=== PATIENT | female | born 1995 | race Caucasian/White ===

== ENCOUNTER 2019-01-11 13:40 | Inpatient (IN) | payer BC, OTHER ==
[2019-01-11] MEDS: LACTATED RINGERS 1,000 ML IV SCH (14:00)
[2019-01-11 14:21] LABS: Basophils % (A) 0 %; Eosinophils # (A) 0.1 k/uL (0-0.7); Eosinophils % (A) 1 %; HCT 35.5 % (34.0-46.0); Lymphocytes # (A) 1.8 k/uL (1.0-4.8); Lymphocytes % (A) 10 %; MCHC 33.9 g/dL (31.0-37.0); MCV 88.5 fL (80.0-100.0); Mean Platelet Volume 7.5; Monocytes # (A) 0.5 k/uL (0-1.0); Monocytes % (A) 3 %; Neutrophils # (A) 14.8 k/uL (1.3-7.7); Neutrophils % (A) 85 %; Platelet Count 282 k/uL (150-450); RBC 4.01 m/uL (3.80-5.40); RDW 13.7 % (11.5-15.5); WBC 17.3 k/uL (3.8-10.6)
[2019-01-11 14:32] LABS: INR 0.9 (<1.2); Partial Thromboplastin Time 22.4 sec (22.0-30.0); Prothrombin Time 9.5 sec (9.0-12.0)
[2019-01-11] MEDS: BUTORPHANOL 1 MG/ML 1 ML VIAL IV PRN ×2 (14:33→14:52)
[2019-01-11] MEDS ORDERED: AMPICILLIN 2,000 MG in SODIUM CHLORIDE 0.9% 100 ML IVPB STA (14:35)
--- NOTE | 2019-01-11 14:47 | US ---
EXAMINATION TYPE: US OB >= 14 wk fetus DATE OF EXAM: 01/11/2019 COMPARISON: None CLINICAL HISTORY: bright bleeding , pain. Second trimester . TECHNIQUE: Transabdominal (TA) GESTATIONAL AGE / DATING Physician Established: (21 weeks/6 days) EDC: 05/18/19 Dates by LMP: LMP unknown Dates by First Scan: No previous available Dates by Current Scan: (21 weeks/ 5 days) EDC: 05/19/19 Beta HCG (if available): Not available at this time SURVEY IUP: Single PLACENTA: Posterior PREVIA: No Previa JEAN: 10.5 cm CERVICAL LENGTH (transabdominal: norm > 3.0cm): fluid filled cervix BIOMETRY PRESENTATION: Breech BPD: 5.2 cm 21 weeks / 6 days HC: 18.7 cm 21 weeks / 4 days AC: 16.4 cm 21 weeks / 4 days FL: 3.7 cm 21 weeks / 4 days ESTIMATED WEIGHT IN GRAMS: 431 grams ESTIMATED WEIGHT IN LBS/OZ: 0 lbs. 15 oz. WEIGHT PERCENTAGE BASED ON ESTABLISHED DATES: 23% HC/AC: 1.14 FL/AC: 23 HEART RATE: [address] Beltran present during exam. Severe funneling in cervix. Initial images show cervical thinning with protrusion of gestational sac. No premature membrane ruptu re as amniotic fluid index is calculated within normal limits. No ultrasound evidence for placenta pr evia. Current breech presentation noted. biometry measurements are concordant felt within brice l limits. IMPRESSION: Cervical thinning with protrusion of gestational sac.
[2019-01-11] MEDS ORDERED: LANOLIN CREAM 5 GM TUBE TOPICAL PRN (15:08)
[2019-01-11] MEDS ORDERED: diphenhydrAMINE 50 MG CAP PO PRN (15:08)
[2019-01-11] MEDS ORDERED: WITCH HAZEL 1 EACH MED..PAD TOPICAL PRN (15:08)
[2019-01-11] MEDS ORDERED: ACETAMINOPHEN TAB 325 MG TAB PO PRN (15:08)
[2019-01-11] MEDS ORDERED: HYDROCORTISONE 2.5% RECTAL CREAM 30 GM TUBE RECTAL PRN (15:08)
[2019-01-11] MEDS ORDERED: diphenhydrAMINE 25 MG CAP PO PRN (15:08)
[2019-01-11] MEDS ORDERED: SIMETHICONE 80 MG CHEWABLE PO PRN (15:08)
[2019-01-11] MEDS ORDERED: IBUPROFEN 600 MG TAB PO PRN (15:08)
[2019-01-11] MEDS ORDERED: BENZOCAINE/MENTHOL SPRAY 1 GM/SPRAY AEROSOL TOPICAL PRN (15:08)
[2019-01-11] MEDS ORDERED: ZOLPIDEM 5 MG TAB PO PRN (15:08)
[2019-01-11] MEDS ORDERED: OXYTOCIN 20 UNITS/1000 ML NS 1,000 ML IV SCH (15:15)
--- NOTE | 2019-01-11 16:58 | P.HPOB ---
History of Present Illness H&P Date: 01/11/19 Chief Complaint: Intrauterine 21 weeks active labor Patient is a 23-year-old at 20 weeks 6 days gestation who arrives complaining of pain and bleeding. On immediate presentation a stat ultrasound was ordered as there was no evidence of placentali on ultrasound 2 weeks ago and she was not having heavy flow of blood but the abdomen was hard and other were heart tones noted there was concern for an abruption. CBC and coags were also ordered. Blood type was B+. During the ultrasound it was noted that the bag of water was all in the vagina representing either cervical incompetence or active labor. They cannot see her identify any cervical tissue however. I did come in and examine the patient immediately at that point and was sectioned present for some of the ultrasound. Digital exam was done and neck palpate membranes but could not feel any cervix behind them. As she was only 21 weeks and previable she and I did have discussion that once baby was born that the baby would pass away. They was noted and breech presentation. She did I did discuss that if she was further long we would likely do a section as will be safer to try and deliver the baby by but, as she is so previable by at least 2-3 weeks, we would allow for a vaginal delivery as that would be safer for her and we'll allow her to try and deliver vaginally in the future as it would certainly have to be classical to deliver the baby at this point. She understands and agrees with above and will plan IV pain medication as she isn't too much pain to do a epidural. She relates that the pain began 2 nights ago and has progressively gotten worse and over the last several hours the pain has gotten the point where it is severe and she is feeling it almost every 1-2 minutes. This has been going on acutely for 3 or 4 hours but pain was approximately every 5 minutes since early last evening but she did not call or come into labor and delivery she thought she was having gas pain initially. It is unclear whether or not we would have been able to do anything to HER the course of this. It does not seem likely that this is a cervical incompetence issue, she is karly labs are pending but I suspect that this is labor and possibly from infection although she has no fever chills nausea or vomiting at this time. Will need further workup moving forward. Should she get again in the near future, she would almost certainly benefit from maternal medicine evaluation and vaginal cultures should be done post p artum to rule out any potential vaginitis or vaginal infection may have played a role in this event. On physical exam her heart is regular, lungs are clear, extremities are without pain. Abdomen is is firm with contractions but soft otherwise. Feels heart tones were noted and were noted on ultrasound, however once she was moved to the labor and delivery suite we will no longer picking up any active heart tones. She did have spontaneous rupture membranes when she was moved to the delivery room as well. Assessment intrauterine at 21 weeks active labor Plan anticipate spontaneous vaginal delivery of nonviable baby Past Medical History Past Medical History: No Reported History History of Any Multi-Drug Resistant Organisms: None Reported Past Surgical History: No Surgical Hx Reported Past Anesthesia/Blood Transfusion Reactions: No Reported Reaction Smoking Status: Current every day smoker - Past Family History Father Family Medical History: No Reported History Medications and Allergies Allergies Allergy/AdvReac Type Severity Reaction Status Date / Time No Known Allergies Allergy Verified 01/11/19 13:54 Exam Osteopathic Statement: *. No significant issues noted on an osteopathic s tructural exam other than those noted in the History and Physical/Consult. Vital Signs Temp Pulse Resp BP 01/11/19 16:00 98.5 F 82 15 118/54 01/11/19 15:59 98.6 F 80 16 112/55 01/11/19 15:44 79 16 109/57 01/11/19 15:29 93 16 126/59 01/11/19 15:14 97.7 F 87 16 118/64 01/11/19 14:31 98.5 F 85 16 121/58 Intake and Output 01/11/19 01/11/19 01/11/19 06:59 14:59 22:59 Other: Weight 57.153 kg Results Result Diagrams: 01/11/19 14:10 Abnormal Lab Results - Last 24 Hours (Table) 01/11/19 Range/Units 14:10 WBC 17.3 H (3.8-10.6) k/uL Neutrophils # 14.8 H (1.3-7.7) k/uL
--- NOTE | 2019-01-11 17:00 | P.PROBDLV ---
Vaginal Delivery Note - . Vaginal Delivery Note: Patient progressed complete and pushing with spontaneous vaginal delivery of a nonviable female over an intact perineum. Baby was delivered from rodrick breech presentation once body was delivered arms were swept aside and although there was some difficulty in delivering the head through the cervix baby with very careful gentle adjustments was able to be delivered intact. There was no signs of life at delivery of the body AB was mottled and bruised and no cardiac activity or palpation of blood flow through the umbilical cord was noted. [employer] and nursery were present at delivery but there was unfortunately nothing else that could be done. Once baby was delivered placenta disc delivered intact there were still some membranes that remained behind. She had no active bleeding and she and I discussed if she begins to have any heavy bleeding she may have to have a D&C to remove the remainder of the membranes although there does not appear to be. Many left otherwise, they may separate on the [place] and be passed without difficulty. We will plan on continuing to monitor her through the evening and make adjustments as necessary. Ultimately, she may need an ultrasound and potential D&C moving forward if the membranes did not separate and deliver on her own.
--- NOTE | 2019-01-11 17:43 | P.PN ---
Progress Note - Text Progress Note Date: 01/11/19 I did go in and speak with she and the father of the baby. All questions were answered for them. I did explain that I thought that she was likely in labor and that unfortunately no therapies would alter the outcome of today's event. I explained most likely there was some type of infection or an unknown reason for her to have had labor. She was however too early for FSN so would not have made any difference from that standpoint. I also explained what cervical incompetence was but explained and did not think that that was the reason for her going into labor and having this occur as ultrasound 2 weeks ago revealed her cervix to be 3.3 cm and without funneling. All questions have been answered for them at this time and we'll continue to monitor her through the night.
[2019-01-11 17:48] VITALS: RESP 16
[2019-01-11] MEDS: AMPICILLIN 1,000 MG in SODIUM CHLORIDE 0.9% 50 ML IVPB SCH (19:59)
[2019-01-12] MEDS: LACTATED RINGERS 1,000 ML IV SCH ×4 (00:35→00:40)
[2019-01-12] MEDS: SENNOSIDES-DOCUSATE SODIUM 1 EACH TAB PO SCH ×2 (00:36→09:38)
[2019-01-12] MEDS: AMPICILLIN 1,000 MG in SODIUM CHLORIDE 0.9% 50 ML IVPB SCH ×4 (04:12→07:33)
[2019-01-12 06:42] LABS: Basophils % (A) 0 %; Eosinophils % (A) 0 %; HGB 10.8 gm/dL (11.4-16.0); Lymphocytes # (A) 0.6 k/uL (1.0-4.8); Lymphocytes % (A) 5 %; MCH 31.1 pg (25.0-35.0); MCHC 34.8 g/dL (31.0-37.0); MCV 89.3 fL (80.0-100.0); Mean Platelet Volume 8.3; Monocytes # (A) 0.3 k/uL (0-1.0); Monocytes % (A) 3 %; Neutrophils # (A) 9.9 k/uL (1.3-7.7); Neutrophils % (A) 91 %; Platelet Count 203 k/uL (150-450); RBC 3.48 m/uL (3.80-5.40); RDW 14.9 % (11.5-15.5); WBC 10.8 k/uL (3.8-10.6)
[2019-01-12 07:40] VITALS: BP 107/58; PULSE 91; TEMP 98.9
--- NOTE | 2019-01-12 08:00 | P.DS ---
Providers Date of admission: 01/11/19 14:19 Expected date of discharge: 01/12/19 Attending physician: Nuris Rogers Primary care physician: Stated None Hospital Course: Patient is overall doing well this morning. Clearly she is still very emotionally distraught, but overall her pain is well tolerated and her lochia is reported to be light and she has no other complaints. Her vital signs are stable and she has been afebrile the entire time. White blood cell count decreased from 17-10. We'll plan discharged home later this morning. She is requesting discharge home as she has an appointment later this morning as well. On physical exam heart regular, lungs clear, extremities without pain. Abdomen is soft there is no tenderness or signs or symptoms of endometritis. We did have a discussion about the potential for heavy bleeding and need to report immediately to our office or to the emergency room especially provided factor may still be some fragments of membrane there and not be surprised if any small fragments her past Couple of days. All the questions are answered for this time and she will need to follow up with Dr. Glover in 1 week. Patient Condition at Discharge: Good
== END 2019-01-12 09:40 | disposition home or self-care (01) | DRG 807 ==
LOC: FBPOP 13:40 → 4FBP 14:19
PROVIDERS: ADMIT Obstetrics & Gynecology; ATTEND Obstetrics & Gynecology
PROC: 10E0XZZ Delivery of Products of Conception, External Approach (ICD-10-PCS; principal; 2019-01-11)
DX: O60.12X0 Preterm labor second trimester with preterm delivery second trimester, not applicable or unspecified (principal); Z37.1 Single stillbirth; Z3A.21 21 weeks gestation of pregnancy; F17.200 Nicotine dependence, unspecified, uncomplicated; O99.334 Smoking (tobacco) complicating childbirth; O32.1XX0 Maternal care for breech presentation, not applicable or unspecified
CPT/HCPCS: 76805; 85025; 85610; 85730; 99213

== ENCOUNTER 2021-04-20 22:39 | Inpatient (IN) | payer BC, MEDICAID ==
--- NOTE | 2021-04-20 23:52 | ED ---
General Adult HPI - General Source: patient, RN notes reviewed, old records reviewed Mode of arrival: ambulatory Limitations: no limitations <Syed Richards - Last Filed: 04/21/21 00:42> <Lázaro Mitchell - Last Filed: 04/21/21 01:58> - General Chief complaint: Psychiatric Symptoms Stated complaint: Psych eval Time Seen by Provider: 04/20/21 23:27 - History of Present Illness Initial comments: Patient is a 25-year-old female with past medical history remarkable for polysubstance abuse, sober for multiple months, history of suicidal ideation [facility] emergency Department complaining of suicidal ideations. Patient states she's been having increased stressors in her life. She is endorsing worsening suicidal ideations and states that "I am fighting with myself regarding the spots." She denies any plans or attempts. Denies any homicidal ideations, plans, Tums. Denies any visual or auditory hallucinations. Patient currently has no acute complaints at this time. She is seeking psychiatric evaluation. She does have a son, who is currently being watched by her mother. She states that her stressors have increased since she left her son's father. (Syed Richards) - Related Data Previous Rx's Medication Instructions Recorded Ibuprofen [Motrin] 600 mg PO Q6HR PRN #30 tab 01/12/19 Allergies Allergy/AdvReac Type Severity Reaction Status Date / Time No Known Allergies Allergy Verified 04/20/21 23:10 Review of Systems ROS Other: All systems not noted in ROS Statement are negative. <Syed Richards - Last Filed: 04/21/21 00:42> ROS Other: All systems not noted in ROS Statement are negative. <Lázaro Mitchell - Last Filed: 04/21/21 01:58> ROS Statement: Those systems with pertinent positive or pertinent negative responses have been documented in the HPI. Review of Systems: CONST: Denies fever EYES: Denies blurry vision ENT: Denies nasal congestion C/V: Denies Chest pain RESP: Denies shortness of breath GI: Denies abdominal pain : Denies dysuria SKIN: Denies rash. MSK: Denies joint pain. NEURO: Denies headache PSYCH: Denies homicidal ideations/plans/attempts. Denies visual or auditory hallucinations. She endorses suicidal ideations but denies any plans or attempts. (Syed Richards) Past Medical History Past Medical History: No Reported History History of Any Multi-Drug Resistant Organisms: None Reported Past Surgical History: No Surgical Hx Reported Past Anesthesia/Blood Transfusion Reactions: No Reported Reaction Past Psychological History: Anxiety, Bipolar, Depression Smoking Status: Current every day smoker, Never smoker Past Alcohol Use History: None Reported Past Drug Use History: Cocaine, Heroin, Marijuana, Methamphetamine - Past Family History Father Family Medical History: No Reported History <Syed Richards - Last Filed: 04/21/21 00:42> General Exam Limitations: no limitations <Syed Richards - Last Filed: 04/21/21 00:42> - General Exam Comments Initial Comments: General: Appears in no acute distress. HEAD: Normal with no signs of head trauma. EYES: PERRLA, EOMI, conjunctiva normal, no discharge. ENT: Hearing grossly intact, normal oropharynx. RESPIRATORY: Clear breath sounds bilaterally. No wheezes, rales, or rhonchi. C/V: Regular rate and rhythm. S1 and S2 auscultated, no edema, peripheral pulses 2+ and intact throughout ABD: Abd is soft, nontender, nondistended EXT: Normal range of motion, no obvious deformity SKIN: No rashes or lesions observed on exposed skin. NEURO: Alert and oriented 4. No focal deficits. (Syed Richards) Course Vital Signs 04/20/21 23:06 Temperature 98.3 F Pulse Rate 89 Respiratory 18 Rate Blood Pressure 133/87 O2 Sat by Pulse 98 Oximetry Medical Decision Making <Syed Richards - Last Filed: 04/21/21 00:42> - Medical Decision Making Based on the patient's presentation and physical exam, I do believe that she requires psychiatric evaluation. Patient was changed into green scrubs. Breathalyzer was obtained and was 0. UDS was ordered. I do not believe that she requires any further laboratory studies or imaging this time.UDS was remarkable for positive marijuana. At this time, patient is medically cleared for evaluation by psychiatry. Disposition is pending psychiatric evaluation. Patient was signed out to the oncoming physician Dr. Mitchell pending psychiatric evaluation. (Syed Richards) - Lab Data Lab Results 04/20/21 Range/Units 23:46 Urine Opiates Screen Not Detected (NotDetected) Ur Oxycodone Screen Not Detected (NotDetected) Urine Methadone Screen Not Detected (NotDetected) Ur Propoxyphene Screen Not Detected (NotDetected) Ur Barbiturates Screen Not Detected (NotDetected) U Tricyclic Antidepress Not Detected (NotDetected) Ur Phencyclidine Scrn Not Detected (NotDetected) Ur Amphetamines Screen Not Detected (NotDetected) U Methamphetamines Scrn Not Detected (NotDetected) U Benzodiazepines Scrn Not Detected (NotDetected) Urine Cocaine Screen Not Detected (NotDetected) U Marijuana (THC) Screen Detected H (NotDetected) Disposition <Syed Richards - Last Filed: 04/21/21 00:42> Is patient prescribed a controlled substance at d/c from ED?: No <Lázaro Mitchell - Last Filed: 04/21/21 01:58> Clinical Impression: Encounter for psychiatric assessment, Suicidal ideation Disposition: TRANSFER TO PSYCH HOSP/UNIT Condition: Fair Referrals: None,Stated [Primary Care Provider] - 1-2 days
[2021-04-21 00:33] LABS: Amphetamine Screen,Urine Not Detected (NotDetected); Barbiturate Screen,Urine Not Detected (NotDetected); Benzodiazepines Screen,Urine Not Detected (NotDetected); Cocaine Screen,Urine Not Detected (NotDetected); Methadone Screen, Urine Not Detected (NotDetected); Opiate Screen,Urine Not Detected (NotDetected); Oxycodone Screen, Urine Not Detected (NotDetected); Phencyclidine Screen,Urine Not Detected (NotDetected); Tricyclic Antidepressant,Urine Not Detected (NotDetected); Urn Cannabinoid Scrn Detected (NotDetected)
[2021-04-21] MEDS ORDERED: MAG HYDROX/AL HYDROX/SIMETH 30 ML CUP PO PRN (03:47)
[2021-04-21] MEDS ORDERED: ACETAMINOPHEN TAB 325 MG TAB PO PRN (03:47)
[2021-04-21] MEDS ORDERED: MAGNESIUM HYDROXIDE 2,400 MG/10 ML CUP PO PRN (03:47)
[2021-04-21] MEDS ORDERED: LORazepam 2 MG/ML INJ IM PRN (03:52)
[2021-04-21] MEDS ORDERED: LORazepam 1 MG TAB PO PRN (03:52)
[2021-04-21] MEDS ORDERED: HALOPERIDOL LACTATE 5 MG/ML 1 ML VIAL IM PRN (03:54)
[2021-04-21] MEDS ORDERED: haloperidoL 5 MG TAB PO PRN (03:54)
[2021-04-21 04:45] LABS: Appearance,Urine Clear (Clear); Bacteria,Urine Rare /hpf; Bilirubin,Urine Negative (Negative); Blood,Urine Negative (Negative); Color,Urine Yellow; Glucose,Urine (UA) Negative (Negative); Ketones,Urine Trace (Negative); Leukocyte Esterase,Urine Trace (Negative); Mucus,Urine Many /hpf; Nitrite,Urine Negative (Negative); PH, Urine 5.5 (5.0-8.0); Protein,Urine Trace (Negative); RBC,Urine <1 /hpf (0-5); Specific Gravity,Urine 1.026 (1.001-1.035); Squamous Epithelial Cell,Urine 2 /hpf (0-4); Urobilinogen,Urine <2.0 mg/dL (<2.0); WBC,Urine 6 /hpf (0-5)
[2021-04-21] MEDS: NICOTINE 14MG/24HR PATCH TRANSDERM SCH (08:16)
[2021-04-21 11:37] VITALS: BMI 19.4
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
[2021-04-21] MEDS ORDERED: FLUoxetine HCL 20 MG CAP PO SCH (21:00)
[2021-04-22] MEDS: NICOTINE 14MG/24HR PATCH TRANSDERM SCH (08:48)
--- NOTE | 2021-04-22 09:13 | P.PN ---
Progress Note - Text Progress Note Date: 04/22/21 Interval History: Patient was seen wandering the hallways and was directable and agreeable to speak with selling underwriter in the office. The patient is reporting that she is feeling better today. She reports no suicidal or homicidal ideation, intention, and/or plan. She has been in adherent with her Prozac but expresses that it is causing her to feel little bit drowsy. She reports no issues with her sleep. She does report low appetite she denies any auditory or visual hallucinations. She reports no paranoia or delusions. The patient has been attending groups. She discusses that her primary concern is her relationship with her child's father. Mental Status Exam: General Appearance: Patient appears to be stated age is alert, directable, and cooperative. Fair hygiene and grooming. Behavior: Patient is calmly seated without any agitated behavior. Eye contact is appropriate. Speech: Patient's speech is fluent and nonpressured. Mood/Affect: Mood is improving mildly, affect is congruent and constricted. Suicidality/Homicidality: Patient denies having any suicidal or homicidal ideation intent or plan. Perceptions: Patient denies any visual hallucinations and denies any auditory hallucinations Though content/process: There is no evidence of any delusional thought content and thought process is linear and goal-directed. Memory and concentration: AOX3, grossly intact for the purposes of this session Judgment and insight: Improving mildly Vital Signs Temp 98.3 F 04/22/21 07:13 Pulse 72 04/22/21 07:13 Resp 16 04/22/21 07:13 BP 107/54 04/22/21 07:13 Pulse Ox 99 04/21/21 04:58 Intake & Output 04/21/21 04/22/21 04/22/21 18:59 06:59 18:59 Weight 51.398 kg Assessment Major depressive disorder, recurrent, severe Rule out depression Rule out obsessive-compulsive disorder History of polysubstance abuse Cannabis use disorder Plan: -Patient continues to meet criteria for inpatient psychiatric admission for symptom stabilization and safety. Patient has signed adult voluntary form and medication consent and was placed in patient's chart. -Medications: Increase Prozac to 30 mg by mouth at bedtime for depression/anxiety -When necessary Ativan and Haldol for agitation/aggression. -NRT - nicotine patch -SW on board for discharge planning. Encouraged the patient to participate in milieu.
[2021-04-22 12:04] LABS: Basophils % (A) 0 %; Eosinophils # (A) 0.1 k/uL (0-0.7); Eosinophils % (A) 1 %; HCT 43.8 % (34.0-46.0); HGB 14.6 gm/dL (11.4-16.0); Lymphocytes # (A) 2.7 k/uL (1.0-4.8); Lymphocytes % (A) 27 %; MCH 30.6 pg (25.0-35.0); MCHC 33.3 g/dL (31.0-37.0); MCV 91.9 fL (80.0-100.0); Mean Platelet Volume 7.9; Monocytes # (A) 0.3 k/uL (0-1.0); Monocytes % (A) 3 %; Neutrophils # (A) 6.8 k/uL (1.3-7.7); Neutrophils % (A) 67 %; Platelet Count 392 k/uL (150-450); RBC 4.77 m/uL (3.80-5.40); RDW 12.7 % (11.5-15.5); WBC 10.1 k/uL (3.8-10.6)
[2021-04-22 12:27] LABS: ALT 17 U/L (4-34); AST 19 U/L (14-36); African American GFR (CKD) >90 (>60 ml/min/1.73 sqM); Albumin 4.6 g/dL (3.5-5.0); Alkaline Phosphatase 58 U/L (38-126); Anion Gap 8 mmol/L; Blood Urea Nitrogen 12 mg/dL (7-17); Calcium 9.8 mg/dL (8.4-10.2); Carbon Dioxide 29 mmol/L (22-30); Chloride 103 mmol/L (98-107); Glucose 94 mg/dL (74-99); Non-African American GFR(CKD) >90 (>60 ml/min/1.73 sqM); Potassium 4.4 mmol/L (3.5-5.1); Sodium 140 mmol/L (137-145); Total Bilirubin 0.6 mg/dL (0.2-1.3); Total Protein 7.4 g/dL (6.3-8.2)
[2021-04-22] MEDS ORDERED: FLUoxetine HCL 10 MG CAP PO SCH (21:00)
[2021-04-23 06:18] VITALS: BP 127/64; PULSE 71; RESP 14; TEMP 97.8
[2021-04-23] MEDS: NICOTINE 14MG/24HR PATCH TRANSDERM SCH (08:44)
[2021-04-23] MEDS ORDERED: BENZOCAINE 20 % GEL 15 GM TUBE MM PRN (09:42)
--- NOTE | 2021-04-23 12:35 | P.PN ---
Progress Note - Text Progress Note Date: 04/23/21 Interval History: Patient was seen wandering the hallways near the [facility] and was directable and agreeable to speak with documentation writer in the office. Patient was appropriate with documentation writer and is very polite. She states that she is working through her problems and feeling somewhat anxious today however states that her mood has been improving with medications. She claims that she was having difficulty sleeping last night sleeping approximately 2-3 hours. She was agreeable to try melatonin tonight. She spoke about working on coping skills and distress tolerance during groups today. She states that she would like to most likely be discharged tomorrow if possible. She was very directable and calm during the interview. She claims that she is interacting with other peers on the unit today. She has several questions about her doses and her medication options. She reports no suicidal or homicidal ideation, intention, and/or plan. She does report low appetite she denies any auditory or visual hallucinations. She reports no paranoia or delusions. Mental Status Exam: General Appearance: Patient appears to be stated age is alert, directable, and cooperative. Fair hygiene and grooming. Behavior: Patient is calmly seated without any agitated behavior. Eye contact is appropriate. cooperative Speech: Patient's speech is fluent and nonpressured. Mood/Affect: Mood is improving mildly, somewhat anxious today, affect is congruent and constricted. Suicidality/Homicidality: Patient denies having any suicidal or homicidal ideation intent or plan. Perceptions: Patient denies any visual hallucinations and denies any auditory hallucinations Though content/process: There is no evidence of any delusional thought content and thought process is linear and goal-directed. focused on her medications. Memory and concentration: AOX3, grossly intact for the purposes of this session Judgment and insight: Improving mildly Assessment Major depressive disorder, recurrent, severe Rule out depression Rule out obsessive-compulsive disorder History of polysubstance abuse Cannabis use disorder Plan: -Patient continues to meet criteria for inpatient psychiatric admission for symptom stabilization and safety. Patient has signed adult voluntary form and medication consent and was placed in patient's chart. -Medications: Increase Prozac to 40 mg and change to daily dosing for depression/anxiety. added melatonin 5 mg qhs insomnia. -When necessary Ativan and Haldol for agitation/aggression. -NRT - nicotine patch -SW on board for discharge planning. Encouraged the patient to participate in milieu. likely discharge tomorrow.
--- NOTE | 2021-04-23 14:43 | P.MDCNMH ---
History of Present Illness Chief Complaint: Depression This is a 25-year-old female who was admitted for worsening depression to mental health unit. She is a admitted for stabilization of her mental health and depression. She was having quite vivid suicidal ideations. She denies any past medical history. Denies any history of asthma, diabetes, cardiovascular diseases without problems. She currently does not take any medications at home. Review of Systems All systems: negative Past Medical History Past Medical History: No Reported History History of Any Multi-Drug Resistant Organisms: None Reported Past Surgical History: No Surgical Hx Reported Past Anesthesia/Blood Transfusion Reactions: No Reported Reaction Smoking Status: Current every day smoker - Past Family History Father Family Medical History: No Reported History Medications and Allergies Home Medications Medication Instructions Recorded Confirmed Type Ibuprofen [Motrin] 600 mg PO Q6HR PRN #30 tab 01/12/19 04/21/21 Rx Allergies Allergy/AdvReac Type Severity Reaction Status Date / Time No Known Allergies Allergy Verified 04/21/21 03:58 Physical Exam Vitals: Vital Signs Temp Pulse Resp BP 04/23/21 06:18 97.8 F 71 14 127/64 Awake alert oriented 3 Head and neck: Atraumatic normocephalic anicteric sclerae and moist mucous membranes no neck masses no JVD Lungs clear to auscultation Cardiovascular regular rhythm and rate Abdomen soft nontender nondistended Extremities no peripheral edema Cranial Nerve Examination - Cranial Nerves Cranial Nerve I- Olfactory: Intact Cranial Nerve II- Optic: Intact Cranial Nerve III- Oculomotor: Intact Cranial Nerve IV- Trochlear: Intact Cranial Nerve V- Trigeminal: Intact Cranial Nerve - Abducens: Intact Cranial Nerve VII- Facial: Intact Cranial Nerve VIII- Auditory: Intact Cranial Nerve IX- Glossopharyngeal: Intact Cranial Nerve X- Vagus: Intact Cranial Nerve XI- Accessory: Intact Cranial Nerve XII- Hypoglossal: Intact Results CBC & Chem 7: 04/22/21 11:43 04/22/21 11:43 Assessment and Plan Plan: #Major depression Suicidal ideation Admitted to mental health unit Continue per psychiatry recommendations Check CBC, CMP, TSH, test and lipid panel
[2021-04-23] MEDS ORDERED: MELATONIN 5 MG TABLET PO SCH (21:00)
[2021-04-24] MEDS: NICOTINE 14MG/24HR PATCH TRANSDERM SCH (08:11)
[2021-04-24] MEDS ORDERED: FLUoxetine HCL 20 MG CAP PO SCH (09:00)
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
== END 2021-04-24 12:08 | disposition home or self-care (01) | DRG 885 ==
LOC: EC 22:39 → 3MHU 04-21 03:40
PROVIDERS: ADMIT Psychiatry & Neurology Psychiatry; ATTEND Psychiatry & Neurology Psychiatry
DX: F31.4 Bipolar disorder, current episode depressed, severe, without psychotic features (principal); R45.851 Suicidal ideations; F60.3 Borderline personality disorder; Z20.822 Contact with and (suspected) exposure to COVID-19; F19.10 Other psychoactive substance abuse, uncomplicated; F12.10 Cannabis abuse, uncomplicated; G47.00 Insomnia, unspecified; F42.9 Obsessive-compulsive disorder, unspecified; F41.1 Generalized anxiety disorder; F17.200 Nicotine dependence, unspecified, uncomplicated; Z71.6 Tobacco abuse counseling; Z91.51 Personal history of suicidal behavior; Z71.41 Alcohol abuse counseling and surveillance of alcoholic; Z71.51 Drug abuse counseling and surveillance of drug abuser; Z81.8 Family history of other mental and behavioral disorders; Z81.1 Family history of alcohol abuse and dependence
CPT/HCPCS: 80053; 80306; 81001; 81025; 82075; 83036; 84443; 85025; 87635; 99285